=== PATIENT | male | born 1945 | race Caucasian/White ===

== ENCOUNTER → 2017-05-28 | Outpatient (CLI) | payer OTHER | LOC: CIMAGING 10:51 | PROVIDERS: ATTEND Internal Medicine | DX: S92.311A Displaced fracture of first metatarsal bone, right foot, initial encounter for closed fracture (principal) | CPT/HCPCS: 73630-PO; G0463-PO ==

== ENCOUNTER → 2017-09-03 | Outpatient (CLI) | payer OTHER | LOC: CIMAGING 08:43 | PROVIDERS: ATTEND Internal Medicine | DX: S52.612A Displaced fracture of left ulna styloid process, initial encounter for closed fracture (principal); S52.592D Other fractures of lower end of left radius, subsequent encounter for closed fracture with routine healing | CPT/HCPCS: 73110-PO; 90662-PO; G0008-PO; G0463-PO ==

== ENCOUNTER 2019-02-10 10:14 | Day surgery (SDC) | payer OTHER ==
[2019-02-10] MEDS ORDERED: ceFAZolin 2 GM/DEXTROSE 100 ML IV ONE (11:03)
[2019-02-10] MEDS ORDERED: BUPIVACAINE 0.5% 30 ML SDV ONE (11:04)
[2019-02-10] MEDS ORDERED: LR 1,000 ML IV ONE (11:07)
--- NOTE | 2019-02-10 11:52 | PDANEPAE ---
ANE History of Present Illness left wrist fx ANE Past Medical History - Cardiovascular History Hx Hypertension: No Hx Arrhythmias: No Hx Chest Pain: No Hx Coronary Artery / Peripheral Vascular Disease: No Hx CHF / Valvular Disease: No Hx Palpitations: No - Pulmonary History Hx COPD: No Hx Asthma/Reactive Airway Disease: No Hx Recent Upper Respiratory Infection: No Hx Oxygen in Use at Home: No Hx Sleep Apnea: No Sleep Apnea Screening Result - Last Documented: Negative - Neurologic History Hx Cerebrovascular Accident: No Hx Seizures: No Hx Dementia: No - Endocrine History Hx Diabetes: Yes Obesity: no 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 ANEMIA - Chronic Pain History Chronic Pain: No - Surgical History Prior Surgeries: SAIRA CATARACT ANE Review of Systems Review of systems is: negative Review of Systems: - Exercise capacity METS (RN): 4 METS ANE Patient History - Allergies Allergies/Adverse Reactions: No Known Allergies Allergy (Unverified 02/09/19 11:16) - Home Medications Home medications: home medication list seen and reviewed Home Medications: Combigan (*) BID 02/09/19 [Last Taken 02/09/19] FLUoxetine DAILY 02/09/19 [Last Taken 02/10/19 06:00] Herbals/Supplements -Info Only DAILY 02/09/19 [Last Taken 02/09/19] Humalog 5 TID 02/09/19 [Last Taken 02/09/19] Lantus 35 HS 02/09/19 [Last Taken 02/09/19] Latanoprost HS 02/09/19 [Last Taken 02/09/19] Lisinopril DAILY 02/09/19 [Last Taken 02/10/19 06:00] Metformin HCl BID 02/09/19 [Last Taken 02/09/19] Pioglitazone HCl DAILY 02/09/19 [Last Taken 02/09/19] SIMVASTATIN DAILY 02/09/19 [Last Taken 02/09/19] Tamsulosin HCl DAILY 02/09/19 [Last Taken 02/09/19] Enalapril Maleate 02/10/19 [Last Taken 02/09/19] - NPO status NPO Since - Liquids (Date): 02/10/19 NPO Since - Liquids (Time): 06:00 NPO Since - Solids (Date): 02/09/19 NPO Since - Solids (Time): 19:00 - Anes Hx Anes Hx: no prior problems - Smoking Hx Smoking Status: Former smoker ANE Labs/Vital Signs - Labs Result Diagrams: 02/10/19 10:55 - Vital Signs Blood Pressure: 123/83 Heart Rate: 73 Respiratory Rate: 18 O2 Sat (%): 92 Height: 180.34 cm Weight: 90.718 kg ANE Physical Exam - Airway Neck exam: FROM Mallampati Score: Class 2 Mouth exam: dentures - Pulmonary Pulmonary: no respiratory distress - Cardiovascular Cardiovascular: regular rate and rhythym - ASA Status ASA Status: III ANE Anesthesia Plan Anesthesia Plan: GA w LMA Regional Anesthesia: single shot NB, supraclavicular BP NB Urgent/Emergent Case: Floyd schultz completed preop but documented later for safe timely pt care
[2019-02-10] MEDS ORDERED: MIDAZOLAM 2 MG/2 ML VIAL ONE (11:59)
[2019-02-10] MEDS ORDERED: PROPOFOL 200 MG/20 ML VIAL ONE (12:02)
[2019-02-10] MEDS ORDERED: fentaNYL 100 MCG/2 ML INJ ONE ×2 (12:02→13:44)
--- NOTE | 2019-02-10 12:02 | PDHPUP ---
History & Physical Update H&P update statement: This history and physical update is based on an assessment of the patient which was completed after admission or registration (within 24 hours), but prior to the surgery/procedure. H&P update: H&P reviewed & patient examined, no change in patient's condition since H&P completed
[2019-02-10] MEDS ORDERED: ONDANSETRON 4 MG/2 ML VIAL ONE (12:03)
[2019-02-10] MEDS ORDERED: DEXAMETHASONE 4 MG/ML VIAL ONE (12:03)
[2019-02-10] MEDS ORDERED: LIDOCAINE 2% 5 ML SDV ONE (12:04)
[2019-02-10] MEDS ORDERED: ROPIVACAINE HCL 150 MG/30 ML INJ ONE (12:32)
[2019-02-10] MEDS ORDERED: MIDAZOLAM 2 MG/2 ML VIAL IVP ONE (12:37)
--- NOTE | 2019-02-10 12:37 | POSTANESTH ---
Post Anesthetic Evaluation Cardiovascular Status: Normal, Stable Respiratory Status: Normal, Stable Level of Consciousness/Mental Status: Can Participate in Eval, Alert and Oriented Pain Control: Adequate, Prn Tx Ordered Nausea/Vomiting Control: Adequate, Prn Tx Ordered Complications Possibly Related to Anesthesia: None Noted
[2019-02-10] MEDS ORDERED: ALBUTEROL 3 ML DEYVIAL IH PRN (12:50)
[2019-02-10] MEDS ORDERED: oxyCODONE IR 5 MG TAB PO PRN (12:50)
[2019-02-10] MEDS ORDERED: ONDANSETRON 4 MG/2 ML VIAL IVP PRN (12:50)
[2019-02-10] MEDS ORDERED: LR 500 ML IV PRN (12:50)
[2019-02-10] MEDS ORDERED: PROMETHAZINE HCL 25 MG/ML INJ IVP PRN (12:50)
[2019-02-10] MEDS ORDERED: HYDROCODONE/APAP 5/325 TAB PO PRN (12:50)
[2019-02-10] MEDS ORDERED: NALOXONE HCL 0.4 MG/ML INJ IVP PRN (12:50)
[2019-02-10] MEDS ORDERED: ACETAMINOPHEN 500 MG TAB PO PRN (12:50)
[2019-02-10] MEDS ORDERED: ePHEDrine SULFATE 25 MG/5 ML SYR ONE (12:53)
[2019-02-10] MEDS: fentaNYL 100 MCG/2 ML INJ IVP PRN ×2 (13:45→13:51)
--- NOTE | 2019-02-10 14:33 | GOP ---
[f rep st] OPERATIVE REPORT DATE OF OPERATION: 02/10/2019 SURGEON: Donnie Murillo MD MACHINE PRESSER: Sebastien Restrepo MD. ANESTHESIA: General with scalene block for postop pain control. PREOPERATIVE DIAGNOSIS: Left distal radius fracture, three-part. POSTOPERATIVE DIAGNOSIS: Left distal radius fracture, three-part. PROCEDURE PERFORMED: Open reduction and internal fixation of left distal radius three-part fracture. FINDINGS: SPECIMENS: None. ESTIMATED BLOOD LOSS: 5 mL. INDICATIONS: This is a male who fell and had a displaced fracture of his distal radius. Given the d isplacement and the unstable nature of this and his active lifestyle, we counseled him on risks and b enefits of operative intervention, and he would like to proceed. We discussed risks of nonunion, mal union, nerve injury (particularly the median nerve), arterial injury of the radial artery, tendon inj ury, and need for hardware removal, and he elected to proceed. Informed consent was obtained. All q uestions were answered. He was marked preoperatively. DESCRIPTION OF PROCEDURE: I made an incision over the volar portion of the wrist, dissected through the FCR sheath into the bottom of the sheath protecting neurovascular structures, and elevated the qu adratus. I exposed the fracture. Was able to reduce this by manual manipulation and placed with a F reer. I held this provisionally with a K-wire. I placed a plate and checked this fluoroscopically a nd then placed some locking screws distally and then the cortical screw helping to reduce the fractur e further and bring the plate to bone. I then placed locking screws distally and cortical screws pro ximally, and this held stable fixation and good range of motion. Fluoroscopy confirmed the screws we re not in the joint and the appropriate length, and I liked the fracture reduction. He was irrigated , closed with 3-0 Vicryl and 3-0 Quill and Dermabond. He was taken to PACU in stable condition. IMPLANTS: Synthes distal radius plate with locking 2.4 and nonlocking 2.7 screws. COMPLICATIONS: None. DRAINS: None. CONDITION: Stable. /[id number]/MODL
[2019-02-10] MEDS ORDERED: HYDROCODONE/APAP 5/325 TAB ONE (14:59)
[2019-02-10 15:35] VITALS: BP 105/74
== END 2019-02-10 15:45 | disposition home or self-care (01) ==
LOC: FSGY 10:14
PROVIDERS: ATTEND Orthopaedic Surgery
PROC: 0PSJ04Z Reposition Left Radius with Internal Fixation Device, Open Approach (ICD-10-PCS; principal; 2019-02-10 12:00)
DX: S52.592A Other fractures of lower end of left radius, initial encounter for closed fracture (principal); E11.9 Type 2 diabetes mellitus without complications; W01.0XXD Fall on same level from slipping, tripping and stumbling without subsequent striking against object, subsequent encounter; Z87.891 Personal history of nicotine dependence
CPT/HCPCS: C1713; J0690; J1100; J2250; J2405; J2704; J2795; J3010